=== PATIENT | male | born 1995 | race Caucasian/White ===

== ENCOUNTER 2018-09-03 13:57 | Emergency (ER) | payer OTHER ==
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
[2018-09-03 16:01] VITALS: BP 131/91
== END 2018-09-03 15:40 | disposition home or self-care (01) ==
DX: S06.0X9A Concussion with loss of consciousness of unspecified duration, initial encounter (principal); Y04.8XXA Assault by other bodily force, initial encounter; Y93.89 Activity, other specified